=== PATIENT | male | born 1960 | race Caucasian/White ===

== ENCOUNTER 2020-07-20 20:40 | Emergency (ER) | payer OTHER ==
[~2020-07-20] VITALS: Ht 198.1 cm; Wt 122.9 kg
--- NOTE | ~2020-07-20 | EMS ---
[address] [address] EMS Patient Care Report Name: TOI ACEVES Room #: REG Yanna#: [id number] Admission: 07/20/20 Attend Phys: Discharge: Date of : 64 Report #: [id number] THIS REPORT FOR: //name// Report Transmitted: 07/20/2020 20:23 EMS Care Summary [place], [place]/[facility] Incident [id number] @ 07/20/2020 20:14 Incident Location [address] [facility] Patient TOI ACEVES Male, 60 Years 1960 Patient Address Patient History Cirrhosis of Liver,Hepatitis C (Without Hepatic Coma),Human Immunodeficiency Virus Disease (HIV/AIDS),Atrial Fibrillation,Edema, Patient Allergies Aspirin, Patient Medications Doxycycline, Diltiazem, Aldactone, Lasix, Chief Complaint ABSCESS/EDEMA Disposition Transported No Lights/Bend Dispatch Reason Sick Person Transported To [facility] Narrative RESPONDED TO SICK AT [facility]. UPON ARRIVAL PT MET EMS IN [facility]. PT IS ALERT AND ORIENTED. [facility] STAFF REPORTS PT HAS ABSCESS TO LEFT FACE THAT HAS BEEN LANCED BUT NOW IS SPREADING FURTHER AND BECOMING MORE PAINFUL. PT CURRENTLY TAKES ANTIBIOTICS TO PREVENT FURTHER INFECTION. PT ALSO HAS EDEMA AND REDNESS IN BOTH LOWER LEGS AND TAKES LASIX. PT AMBULATED TO [facility] AND [address] [address] EMS Patient Care Report Name: TOI ACEVES Room #: REG ER [facility]#: [id number] Admission: 07/20/20 Attend Phys: Discharge: Date of : 64 Report #: [id number] SEATBELTS APPLIED. VITALS OBTAINED. PT TRANSPORTED TO [facility] WITH NO CHANGE IN CONDITION. PT WALKED TO ED RM 3 AND SAT ON BED. REPORT GIVEN TO NURSE. Initial Vitals @20:29P: 66,R: 18,BP: 136/78,SpO2: 97, @20:34P: 66,R: 18,BP: 115/55,Pain: 10/10,GCS: 15,SpO2: 96,Revised Trauma: 12, Assessments @20:25MENTAL:Person Oriented,Time Oriented,Place Oriented,Event Oriented,SKIN:HEENT:Head/Face: Swelling,Neck/Airway: No Abnormalities,LUNG SOUNDS:General: No Abnormalities,Left Upper: No Abnormalities,Right Upper: No Abnormalities,Left Lower: No Abnormalities,Right Lower: No Abnormalities,ABDOMEN:General: No Abnormalities,Left Upper: No Abnormalities,Right Upper: No Abnormalities,Left Lower: No Abnormalities,Right Lower: No Abnormalities,PELVIS//GI:No Abnormalities,EXTREMITIES:Left Leg: Edema,Right Leg: Edema,Left Arm: No Abnormalities,Right Arm: No Abnormalities,PULSE:NEURO:No Abnormalities,@20:30MENTAL:Time Oriented,Place Oriented,Person Oriented,Event Oriented,SKIN:No Abnormalities,HEENT:Head/Face: Swelling,Eyes: No Abnormalities,Neck/Airway: No Abnormalities,LUNG SOUNDS:General: No Abnormalities,Left Upper: No Abnormalities,Right Upper: No Abnormalities,Left Lower: No Abnormalities,Right Lower: No Abnormalities,ABDOMEN:General: No Abnormalities,Left Upper: No Abnormalities,Right Upper: No Abnormalities,Left Lower: No Abnormalities,Right Lower: No Abnormalities,PELVIS//GI:No Abnormalities,EXTREMITIES:Left Leg: Edema,Right Leg: Edema,Left Arm: No Abnormalities,Right Arm: No Abnormalities,PULSE:NEURO:No Abnormalities, Impression Pain (Non-Traumatic) Procedures @20:25ALS AssessmentResponse: UnchangedSucceeded Timeline 20:12,Call Received 20:12,Dispatch Notified 20:14,Dispatched 20:17,En Route 20:24,On Scene 20:25,At Patient 20:25,ALS Assessment,Response: UnchangedSucceeded, 20:27,Depart Scene 20:29,BP: 136/78 M,PULSE: 66,RR: 18 R,SPO2: 97 Ox,ETCO2: ,BG: ,PAIN: ,GCS: , 20:34,BP: 115/55 M,PULSE: 66,RR: 18 R,SPO2: 96 Ox,ETCO2: ,BG: ,PAIN: 10,GCS: 15, 20:35,At Destination [facility] [address] [place] [address] EMS Patient Care Report Name: TOI ACEVES Room #: REG Yanna#: [id number] Admission: 07/20/20 Attend Phys: Discharge: Date of : 64 Report #: [id number] 20:45,Call Closed Disclaimer [email or web address] Copyright 2020 [employer] This EMS Care Summary contains data elements from the applicable legal record (which may be displayed differently). It is designed to provide pertinent information for the following purposes: continuity of care, clinical quality, and state data reporting. The complete legal record is available to ED staff and administrators of the receiving hospital in [employer] Patient Tracker. All data is provided "as is."
[2020-07-20 21:16] LABS: HEMOGLOBIN 11.8 gm/dL (14.0-18.0); MCH 38.6 pg (26.0-34.0); MCHC 33.8 g/dL (28.0-37.0); MCV 114.4 fL (80.0-100.0); PLATELET COUNT 83 thou/uL (150-400); RBC 3.06 mil/uL (4.50-6.00); WBC 6.3 thou/uL (4.0-11.0)
[2020-07-20 21:20] LABS: CALCIUM 8.4 mg/dL (8.5-10.1); POTASSIUM 4.4 mmol/L (3.5-5.1)
[2020-07-20 21:26] LABS: ALBUMIN 2.5 g/dL (3.4-5.0); TOTAL BILIRUBIN 3.5 mg/dL (0.2-1.0); TOTAL PROTEIN 6.9 g/dL (6.4-8.2)
[2020-07-20 21:47] LABS: ABSOLUTE NEUTROPHILS 2.3 thou/uL (1.4-8.2); ANISOCYTOSIS 2+; MACROCYTES 2+
[2020-07-20 21:48] LABS: HYPOCHROMASIA SLIGHT; POLYCHROMASIA OCCASIONAL
[2020-07-20 22:20] VITALS: BP 123/70
== END 2020-07-20 22:30 | disposition home or self-care (01) ==
LOC: ER 20:40 → EDBD 20:40 → ER 22:30
PROVIDERS: Nurse Practitioner
DX: R22.0 Localized swelling, mass and lump, head (principal); Z87.891 Personal history of nicotine dependence